=== PATIENT | male | born 1980 | race Caucasian/White ===

== ENCOUNTER 2019-05-10 06:33 | Emergency (ER) | payer OTHER, SELFPAY ==
[2019-05-10 06:37] VITALS: BP 143/94; PULSE 88; RESP 16; TEMP 36.4; O2SAT 96
--- NOTE | 2019-05-10 06:39 | W.ED.GENAD ---
Discharge Plan Disposition Patient Disposition: HOME Condition: Stable Discharge Details Chief Complaint: Sorethroat Clinical Impression: Pharyngitis Primary Care Provider: Marlen Galindo ED Provider: Moise Barbosa Home Meds and New Rx's Prescriptions: Continued CPAP RF: 0 (DME) Space Chamber Plus spacer Miscellaneous PRN Qty: 1 RF: 0 albuterol sulfate [ProAir HFA] 90 mcg/actuation HFA aerosol inhaler 1 - 2 puff Inhalation Q4-6H PRN Qty: 1 RF: 3 beclomethasone dipropionate 80 mcg/actuation aerosol See Rx Instructions Inhalation BID Qty: 1 RF: 3 acetaminophen [Tylenol] 325 MG tablet 3 tab PO PRN PRNRF: 0 Discharge Instructions Instructions: Pharyngitis (ED) Additional Instructions: drink fluids to stay hydrated you can have 1000mg tylenol and 600mg ibuprofen every 6 hours for pain as needed if not better within 5 days follow up with your primary care provider if you feel more ill or have inability to swallow liquids return to the emergency department Medical Decision Making 39 yo male comes in with one week of sore throat, body aches and diarrhea without high fevers, abdominal pain, dyspnea, or recent travel. He is in no distress on exam with moist membranes, mild posterior pharynx erythema, midline uvula, no pain over hyoid or restricted neck movements. 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 Suspect viral illness, could be flu but given 1 week of symptoms tamiflu not indicated so do not feel testing indicated. will test for strep and d/c and advised f/u with pcp and return precautions given Differential Diagnosis Differential Diagnosis: influenza, uri, pharyngitis HPI General Mode of arrival: ambulatory. Date/Time Provider Initiated Documentation: 05/10/19 06:39. Limitations to Documentation: no limitations. Information obtained by: patient. History of Present Illness 39 year old M presents to the emergency department with the chief complaint of sore throat, described as moderate, and it has been constant. No relieving factors improve symptom(s), No exacerbating factors reported . Patient did receive the following treatments prior to arrival, none Related Data Home Medications Medication Instructions Recorded Confirmed acetaminophen [Tylenol] 3 tab PO PRN PRN 04/04/15 05/10/19 Cpap 12/02/17 08/12/18 albuterol sulfate 90 mcg/actuation 1 - 2 puff INHALATION Q4-6H PRN #1 11/03/18 05/10/19 aerosol inhaler inhaler inhalational spacing device #1 11/03/18 beclomethasone dipropionate 80 See Rx Instructions INHALATION BID 03/08/19 05/10/19 mcg/actuation aerosol inhaler #1 unit Previous Rx's Medication Instructions Recorded albuterol sulfate 90 mcg/actuation 1 - 2 puff INHALATION Q4-6H PRN #1 11/03/18 aerosol inhaler inhaler inhalational spacing device #1 11/03/18 beclomethasone dipropionate 80 See Rx Instructions INHALATION BID 03/08/19 mcg/actuation aerosol inhaler #1 unit Allergies Allergy/AdvReac Type Severity Reaction Status Date / Time No Known Allergies Allergy Verified 05/10/19 06:39 General Stated Complaint: Sorethroat SAVI: 4 Review of Systems All systems reviewed & are unremarkable except as noted in HPI and below Constitutional Constitutional: Denies chills, Denies fever(s) and Denies weakness ENT Ears, Nose, Mouth, and Throat: Denies change in voice Cardiovascular Cardiovascular: Denies chest pain and Denies dyspnea Respiratory Respiratory: Denies cough and Denies dyspnea Gastrointestinal Gastrointestinal: Denies abdominal pain, Denies nausea and Denies vomiting Musculoskeletal Musculoskeletal: Denies joint swelling Neurologic Neurologic: Denies weakness Endocrine Endocrine: Denies heat intolerance Allergic/Immunologic Allergic/Immunologic: Denies urticaria PFSH Social History Smoking/Tobacco Use Status: Never Alcohol Intake: current Alcohol Intake frequency: a few times a week Drug use: Never Substance use type: does not use Adopted: No Caregiver/Support person: No Foster care: No Household members: spouse and children Communication Needs: None 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 [employer] Pets and animals: Yes Pets and animals: cat(s), dog(s) and other Details: rabbit Current gender identity: male What type of physical activity do you participate in: other Details: Basketball Duration: > 90 minutes/day Frequency: 1-2 times per week Seatbelt use: always Water heater temp set <120 deg: Yes Working smoke detector in home: Yes Fire extinguisher in home: Yes Carbon monox detector in home: Yes Do you feel safe at home: Yes Do you feel safe in your relationship?: Yes Exam Const General: no acute distress Orientation: alert HENMT Head: normal to inspection Ears: external ears normal General nose exam: external nose normal Mouth: moist mucous membranes Eyes General: appearance normal, both eyes and all related structures Neck Neck: normal visual inspection Resp Effort & Inspection: normal respiratory effort and able to speak in complete sentences Cardio Rate: regular rate Skin General skin exam: no rashes or lesions noted Neuro General: alert and oriented x3 Extrem General: normal to inspection Psych Mental Status: mental status grossly normal Course Vital Signs Vital signs: Vital Signs Temperature 36.4 C 05/10/19 06:37 Pulse 88 05/10/19 06:37 Respiratory Rate 16 05/10/19 06:37 Blood Pressure 143/94 H 05/10/19 06:37 Pulse Oximetry 96 05/10/19 06:37 Temperature 36.4 C 05/10/19 06:37 Temperature Source Skin 05/10/19 06:37 Pulse 88 05/10/19 06:37 Respiratory Rate 16 05/10/19 06:37 Blood Pressure 143/94 H 05/10/19 06:37 Pulse Oximetry 96 05/10/19 06:37 End Tidal Co2 6 05/10/19 06:37
[2019-05-10 06:51] VITALS: BP 143/94; PULSE 88; RESP 16; TEMP 36.4; O2SAT 96
== END 2019-05-10 06:51 | disposition home or self-care (01) ==
PROVIDERS: Emergency Provider Emergency Medicine; PCP Nurse Practitioner Family
DX: J02.9 Acute pharyngitis, unspecified (principal)
CPT/HCPCS: 87880; 99282; 87081

== ENCOUNTER 2021-02-21 15:42 | Outpatient (REF) | payer OTHER, SELFPAY ==
[2021-02-23 16:49] LABS: COVID-19 RT-PCR UVMMC Result Positive (Negative)
== END 2021-02-21 15:43 | disposition home or self-care (01) ==
LOC: LBO 15:42
PROVIDERS: Nurse Practitioner; PCP Nurse Practitioner Family; Visit Provider Nurse Practitioner Family
DX: Z20.822 Contact with and (suspected) exposure to COVID-19 (principal); B34.9 Viral infection, unspecified; R05.9 Cough, unspecified
CPT/HCPCS: U0003

== ENCOUNTER 2021-09-05 02:56 | Outpatient (CLI) | payer OTHER, SELFPAY ==
[2021-09-05 07:17] LABS: Abs Immature Grans 0.03 10^3/uL (0.0-0.06); Absolute Basophil Count 0.08 10^3/uL (0.0-0.2); Absolute Eosinophil Count 0.81 10^3/uL (0.0-0.7); Absolute Lymphocyte Count 1.59 10^3/uL (1.2-3.4); Absolute Monocyte Count 0.72 10^3/uL (0.1-0.8); Absolute Neutrophil Count 5.39 10^3/uL (1.2-6.7); Basophils % 0.9; Eosinophils % 9.4; HCT 47.7 % (40.0-50.0); Immature Grans % 0.3; Lymphocytes % 18.4; MCH 26.9 pg (27.0-33.0); MCHC 31.4 % (32.0-36.0); MCV 85.6 fL (80-95); MPV 9.8 fL (8.0-11.0); Monocytes % 8.4; Neutrophils % 62.6; Platelet Count 270 10^3/uL (130-400); RBC 5.57 10^6/uL (4.36-5.78); RDW 13.1 % (11.8-14.1); RDW-SD 40.6 fL; WBC 8.62 10^3/uL (4.4-10.8)
[2021-09-05 07:32] LABS: Hemoglobin A1C 5.6 % (<5.7)
[2021-09-05 08:29] LABS: ALT 36 U/L (16-63); AST 13 U/L (15-37); Albumin 3.8 g/dL (3.4-5.0); Alkaline Phosphatase 82 U/L (46-116); Anion Gap 6.4 mmol/L (3-11); BUN 14 mg/dL (7-18); Bilirubin, Total 0.8 mg/dL (0.2-1.0); CO2 30.6 mmol/L (21.0-32.0); Calcium 8.7 mg/dL (8.5-10.1); Calculated LDL 68 mg/dL (<100); Chloride 105 mmol/L (98-107); Cholesterol 114 mg/dL (<200); Glucose 106 mg/dL (74-106); HDL Cholesterol 36 mg/dL (40-60); Potassium 4.4 mmol/L (3.5-5.1); Sodium 142 mmol/L (136-145); TSH (W/Ref FT4) 1.51 uIU/mL (0.36-3.74); Total Protein 7.5 g/dL (6.4-8.2); Triglyceride 52 mg/dL (<150)
[2021-09-06 10:58] LABS: Hepatitis C Ab w Rflx HCV PCR Negative (Negative)
== END 2021-09-05 02:57 | disposition home or self-care (01) ==
LOC: LBO 02:56
PROVIDERS: PCP Nurse Practitioner Family; Visit Provider Nurse Practitioner Family
DX: R73.01 Impaired fasting glucose (principal); R53.83 Other fatigue; Z13.220 Encounter for screening for lipoid disorders; Z11.59 Encounter for screening for other viral diseases
CPT/HCPCS: 36415; 80053; 80061; 86803; 83036; 84443; 85025

== ENCOUNTER 2022-12-18 03:46 | Outpatient (CLI) | payer OTHER, SELFPAY ==
[2022-12-18 07:47] LABS: Abs Immature Grans 0.04 10^3/uL (0.0-0.06); Absolute Basophil Count 0.11 10^3/uL (0.0-0.2); Absolute Eosinophil Count 0.86 10^3/uL (0.0-0.7); Absolute Lymphocyte Count 2.14 10^3/uL (1.2-3.4); Absolute Monocyte Count 0.98 10^3/uL (0.1-0.8); Absolute Neutrophil Count 6.11 10^3/uL (1.2-6.7); Basophils % 1.1; Eosinophils % 8.4; HCT 46.7 % (40.0-50.0); Immature Grans % 0.4; Lymphocytes % 20.9; MCH 26.5 pg (27.0-33.0); MCHC 32.1 % (32.0-36.0); MCV 83 fL (80-95); MPV 9.7 fL (8.0-11.0); Monocytes % 9.6; Neutrophils % 59.6; Platelet Count 234 10^3/uL (130-400); RBC 5.66 10^6/uL (4.36-5.78); RDW 13.9 % (11.8-14.1); RDW-SD 41.7 fL; WBC 10.24 10^3/uL (4.4-10.8)
[2022-12-18 08:10] LABS: Hemoglobin A1C 5.5 % (<5.7)
[2022-12-18 08:42] LABS: ALT 29 U/L (16-63); AST 12 U/L (15-37); Albumin 3.6 g/dL (3.4-5.0); Alkaline Phosphatase 83 U/L (46-116); Anion Gap 8.3 mmol/L (3-11); BUN 15 mg/dL (7-18); Bilirubin, Total 0.7 mg/dL (0.2-1.0); CO2 30.7 mmol/L (21.0-32.0); Calcium 9.2 mg/dL (8.5-10.1); Calculated LDL 47 mg/dL (<100); Chloride 104 mmol/L (98-107); Cholesterol 95 mg/dL (<200); Estimated GFR 96.97 (mL/min/1.73m2); Glucose 100 mg/dL (74-106); HDL Cholesterol 34 mg/dL (40-60); Potassium 4.2 mmol/L (3.5-5.1); Sodium 143 mmol/L (136-145); TSH (W/Ref FT4) 1.69 uIU/mL (0.36-3.74); Triglyceride 73 mg/dL (<150)
== END 2022-12-18 03:47 | disposition home or self-care (01) ==
LOC: LBO 03:46
PROVIDERS: PCP Nurse Practitioner Family; Referring Provider Nurse Practitioner Family; Visit Provider Nurse Practitioner Family
DX: R53.83 Other fatigue (principal); R73.01 Impaired fasting glucose; Z13.220 Encounter for screening for lipoid disorders
CPT/HCPCS: 36415; 80053; 80061; 83036; 84443; 85025

== ENCOUNTER 2023-06-13 12:28 | Outpatient (REF) | payer OTHER, SELFPAY ==
[2023-06-13 16:41] LABS: COVID-19 PCR Negative (Negative); Influenza A PCR Negative (Negative); Influenza B PCR Negative (Negative); RSV PCR Negative (Negative)
[2023-06-13 16:46] LABS: Source Nasopharynx
== END 2023-06-13 12:29 | disposition home or self-care (01) ==
LOC: LBN 12:28
PROVIDERS: PCP Nurse Practitioner Family; Visit Provider Student in an Organized Health Care Education/Training Program
DX: R05.8 Other specified cough (principal); R07.89 Other chest pain; R09.89 Other specified symptoms and signs involving the circulatory and respiratory systems; R11.10 Vomiting, unspecified; R19.7 Diarrhea, unspecified; R51.9 Headache, unspecified
CPT/HCPCS: 87637

== ENCOUNTER 2023-06-20 03:46 | Outpatient (CLI) | payer OTHER, SELFPAY ==
[2023-06-20] MEDS: Levalbuterol HFA 15 GM INH 4 PUFF IH (11:22)
[2023-06-20] MEDS: Inhaler, Assist Device 1 EACH MC (11:22)
--- NOTE | 2023-06-23 07:28 | W.PFT ---
Date of service: 06/20/23 Time of Service: 10:16 Pulmonary Function Test Result Indications: Asthma Interpretation Spirometry: There is severe airflow limitation. There is a very significant bronchodilator response. Lung Volumes: There is hyperinflation and air trapping Diffusion Capacity: Normal diffusion Airway Pressure: Increased airways resistance Impression Severe airflow obstruction with air trapping and a bronchodilator response. This could represent chronic bronchitis (COPD) or severe uncontrolled asthma with airway remodelling. Clinical Correlation therefore is recommended.
== END 2023-06-20 03:47 | disposition home or self-care (01) ==
LOC: RT 03:46
PROVIDERS: PCP Nurse Practitioner Family; Visit Provider Student in an Organized Health Care Education/Training Program
DX: J45.40 Moderate persistent asthma, uncomplicated (principal); Z86.19 Personal history of other infectious and parasitic diseases
CPT/HCPCS: 94060; 94726; 94729

== ENCOUNTER → 2023-07-09 01:12 | Outpatient (CLI) | payer OTHER, SELFPAY ==
--- NOTE | 2023-07-09 08:13 | DI.RAD_ITS ---
Exam(s) XR CHEST 2V PA LATERAL EXAM: XR CHEST 2V PA LATERAL CLINICAL HISTORY: dyspnea, cough,severe persistent asthma,j45.50. TECHNIQUE: 2D digital imaging was performed. COMPARISON: CR CHEST 2 VIEWS PA,LAT from 08/11/2017 FINDINGS: 2 views: Heart size is normal. The mediastinum is not widened. Right lung is clear. Slightly increased markings in left upper lobe are noted, possibly mild infiltr ate. No pleural effusions. IMPRESSION: Subtle increased left upper lobe markings.Possible mild infiltrate. There are no pleural effusions. DATA REPOSITORY: RADIATION DOSE DELIVERED:
== END ==
PROVIDERS: PCP Nurse Practitioner Family; Visit Provider Student in an Organized Health Care Education/Training Program
DX: J45.50 Severe persistent asthma, uncomplicated (principal)
CPT/HCPCS: 71046

== ENCOUNTER → 2023-07-18 00:38 | Outpatient (CLI) | payer OTHER, SELFPAY ==
--- NOTE | 2023-07-18 10:10 | DI.RAD_ITS ---
Exam(s) XR KNEE LT 3V AP,LAT,KIYA EXAM: XR KNEE LT 3V AP,LAT,KIYA CLINICAL HISTORY: eval joint space;bony path.LT KNEE PAIN,[id number]. TECHNIQUE: 2D digital imaging was performed of the left knee. Three images were obtained. AP, late ral and PA tunnel views were obtained. COMPARISON: No exams were available for comparison FINDINGS: BONES: No acute fracture is present. No bony destructive lesion is seen. JOINTS: There is moderate narrowing of the medial femoral tibial and patellofemoral joint. There ost eophytes involving all 3 joint compartments. There is a small joint effusion. There is a density se en adjacent to the tibial spine which may represent a loose body. SOFT TISSUE: Normal. IMPRESSION: Moderately severe degenerative changes seen in the left knee. DATA REPOSITORY: RADIATION DOSE DELIVERED:
--- NOTE | 2023-07-18 10:11 | DI.RAD_ITS ---
Exam(s) XR KNEE RT 3V AP,LAT,KIYA EXAM: XR KNEE RT 3V AP,LAT,KIYA CLINICAL HISTORY: eval joint space;bony path,RT KNEE PAIN,[id number]. TECHNIQUE: 2D digital imaging was performed of the right knee. Five views obtained. AP, lateral and PA tunnel views were obtained. COMPARISON: No exams were available for comparison FINDINGS: BONES: No acute fracture is present. No bony destructive lesion is seen. JOINTS: Moderately severe narrowing of the medial femoral tibial joint space is noted. There is also marked narrowing of the patellofemoral joint. There osteophytes involving all 3 joint compartments particularly the patellofemoral joint. There is a tiny amount of fluid in the joint space. SOFT TISSUE: Normal. IMPRESSION: Marked right knee arthrosis. DATA REPOSITORY: RADIATION DOSE DELIVERED:
== END ==
PROVIDERS: PCP Nurse Practitioner Family; Visit Provider Student in an Organized Health Care Education/Training Program
DX: M25.561 Pain in right knee; M25.562 Pain in left knee
CPT/HCPCS: 73562

== ENCOUNTER 2024-10-08 01:30 | Outpatient (CLI) | payer OTHER, SELFPAY ==
[2024-10-08 07:51] LABS: Cholesterol 100 mg/dL (<200); HDL Cholesterol 36 mg/dL (>or=40); Triglyceride <25 mg/dL (<150)
[2024-10-08 07:55] LABS: Hemoglobin A1C 5.7 % (<5.7)
[2024-10-08 08:02] LABS: LDL CHOLESTEROL 68 mg/dL (<100)
== END 2024-10-08 01:31 | disposition home or self-care (01) ==
LOC: LBO 01:30
PROVIDERS: PCP Nurse Practitioner Family; Referring Provider Nurse Practitioner Family; Visit Provider Nurse Practitioner Family
DX: Z00.00 Encounter for general adult medical examination without abnormal findings (principal)
CPT/HCPCS: 36415; 80061; 83721; 83036